=== PATIENT | female | born 1955 | race Caucasian/White ===

== ENCOUNTER 2018-03-11 15:34 | Outpatient (CLI) | payer BC | END 2018-03-11 15:35 | disposition home or self-care (01) | LOC: BICMAMMO 15:34 | PROVIDERS: ATTEND Obstetrics & Gynecology | DX: Z12.31 Encounter for screening mammogram for malignant neoplasm of breast (principal) | CPT/HCPCS: 77063; 77067 ==

== ENCOUNTER 2018-09-22 07:33 | Outpatient (CLI) | payer BC | END 2018-09-22 07:34 | disposition home or self-care (01) | LOC: CP 07:33 | PROVIDERS: ATTEND Family Medicine | DX: R06.89 Other abnormalities of breathing (principal) | CPT/HCPCS: 94060; 94727; 94729 ==

== ENCOUNTER 2019-03-21 08:37 | Outpatient (CLI) | payer BC ==
--- NOTE | 2019-03-21 09:07 | MMO ---
Bilateral MAMMO Bilat Screen [facility]. CLINICAL HISTORY: Patient is 63 years old and is seen for screening. The patient has no family history of breast cancer. The patient has no personal history of cancer. VIEWS: The views performed were: bilateral mediolateral oblique with tomosynthesis; bilateral craniocaudal with tomosynthesis; bilateral mediolateral oblique; and left craniocaudal. FILMS COMPARED: The present examination has been compared to prior imaging studies performed at [facility] on 02/08/2015, 03/04/2016, 03/05/2017 and 03/11/2018. MAMMOGRAM FINDINGS: There are scattered fibroglandular densities. There are no suspicious masses, suspicious calcifications, or new areas of architectural distortion. IMPRESSION: THERE IS NO MAMMOGRAPHIC EVIDENCE OF MALIGNANCY. A ROUTINE FOLLOW-UP MAMMOGRAM IN 1 YEAR IS RECOMMENDED. THE RESULTS OF THIS EXAM WERE SENT TO THE PATIENT. ACR BI-RADS Category 1 - Negative MAMMOGRAPHY NOTE: 1. A negative mammogram report should not delay a biopsy if a dominant of clinically suspicious mass is present. 2. Approximately 10% to 15% of breast cancers are not detected by mammography. 3. Adenosis and dense breasts may obscure an underlying neoplasm.
== END 2019-03-21 08:38 | disposition home or self-care (01) ==
LOC: BICMAMMO 08:37
PROVIDERS: ATTEND Obstetrics & Gynecology
DX: Z12.31 Encounter for screening mammogram for malignant neoplasm of breast (principal)
CPT/HCPCS: 77063; 77067

== ENCOUNTER 2019-05-17 16:02 | Outpatient (CLI) | payer BC ==
--- NOTE | 2019-05-17 16:41 | RAD ---
RIGHT KNEE RADIOGRAPHS FOUR VIEWS: 05/17/19 PROVIDED CLINICAL HISTORY: Right knee pain. FINDINGS: No evidence for fracture or other acute osseous abnormality. Small osteophytes are seen about the kne e. Alignment appears anatomic. Joint spaces appear preserved. No significant knee joint capsular dist ention is evident. IMPRESSION: Mild right knee degenerative change. POS: TPC
--- NOTE | 2019-05-17 16:43 | RAD ---
LEFT KNEE RADIOGRAPHS FOUR VIEWS: 05/17/19 PROVIDED CLINICAL HISTORY: Left knee pain. FINDINGS: There is no evidence for fracture or other acute osseous abnormality. Alignment appears anatomic. Sarah nt spaces appear preserved. Small osteophytes are seen about the knee. No significant knee joint caps ular distention apparent. IMPRESSION: Mild left knee degenerative change. POS: TPC
== END 2019-05-17 16:03 | disposition home or self-care (01) ==
LOC: BICRAD 16:02
PROVIDERS: ATTEND Family Medicine
DX: M25.561 Pain in right knee (principal); M25.562 Pain in left knee; M17.0 Bilateral primary osteoarthritis of knee

== ENCOUNTER 2019-07-18 09:48 | Outpatient (CLI) | payer BC ==
--- NOTE | 2019-07-18 10:20 | BD ---
EXAM: DEXA bone density examination HISTORY: 63-year-old postmenopausal female for screening COMPARISON: None FINDINGS: L1--bone mineral density 1.180 g/sq cm; T score 1.7 L2--bone mineral density 1.014 g/sq cm; T score -0.1 L3--bone mineral density 1.087 g/sq cm; T score 0.0 L4--bone mineral density 0.888 g/sq cm; T score -1.6 Total L1-L4--bone mineral density 1.036 g/sq cm; T score -0.1 Left femoral neck--bone mineral density0.681; T score -1.5 Total proximal left femur--bone mineral density 0.926; T score -0.1 IMPRESSION: Osteopenia This patient has a 10 year WHO fracture risk of a major osteoporotic fracture of 7.4% and of a hip fracture of 0.7%.
== END 2019-07-18 09:49 | disposition home or self-care (01) ==
LOC: BICMAMMO 09:48
PROVIDERS: ATTEND Obstetrics & Gynecology
DX: Z13.820 Encounter for screening for osteoporosis (principal); M81.0 Age-related osteoporosis without current pathological fracture; M85.80 Other specified disorders of bone density and structure, unspecified site; Z79.890 Hormone replacement therapy
CPT/HCPCS: 77080

== ENCOUNTER 2020-04-23 10:21 | Outpatient (CLI) | payer BC ==
--- NOTE | 2020-04-23 10:59 | MMO ---
Bilateral MAMMO Bilat Screen [facility]. CLINICAL HISTORY: Patient is 64 years old and is seen for screening. The patient has no family history of breast cancer. The patient has no personal history of cancer. VIEWS: The views performed were: bilateral craniocaudal with tomosynthesis and bilateral mediolateral oblique with tomosynthesis. FILMS COMPARED: The present examination has been compared to prior imaging studies performed at [facility] on 03/04/2016, 03/05/2017, 03/11/2018 and 03/21/2019. This study has been interpreted with the assistance of computer-aided detection. MAMMOGRAM FINDINGS: There are scattered fibroglandular densities. There are no suspicious masses, suspicious calcifications, or new areas of architectural distortion. IMPRESSION: THERE IS NO MAMMOGRAPHIC EVIDENCE OF MALIGNANCY. A ROUTINE FOLLOW-UP MAMMOGRAM IN 1 YEAR IS RECOMMENDED. THE RESULTS OF THIS EXAM WERE SENT TO THE PATIENT. ACR BI-RADS Category 1 - Negative MAMMOGRAPHY NOTE: 1. A negative mammogram report should not delay a biopsy if a dominant of clinically suspicious mass is present. 2. Approximately 10% to 15% of breast cancers are not detected by mammography. 3. Adenosis and dense breasts may obscure an underlying neoplasm. Reported by: TIN GAY MD Electonically Signed: [id number]
== END 2020-04-23 10:22 | disposition home or self-care (01) ==
LOC: BICMAMMO 10:21
PROVIDERS: ATTEND Obstetrics & Gynecology
DX: Z12.31 Encounter for screening mammogram for malignant neoplasm of breast (principal)
CPT/HCPCS: 77063; 77067

== ENCOUNTER 2021-05-21 07:50 | Outpatient (CLI) | payer MEDICARE, BC | END 2021-05-21 07:51 | disposition home or self-care (01) | LOC: BICMAMMO 07:50 | PROVIDERS: ATTEND Obstetrics & Gynecology | DX: Z12.31 Encounter for screening mammogram for malignant neoplasm of breast (principal) | CPT/HCPCS: 77063; 77067 ==

== ENCOUNTER 2021-08-25 16:20 | Outpatient (CLI) | payer MEDICARE, BC | END 2021-08-25 16:21 | disposition home or self-care (01) | LOC: BICRAD 16:20 | PROVIDERS: ATTEND Physician Assistant | DX: R05.9 Cough, unspecified (principal) | CPT/HCPCS: 71046 ==

== ENCOUNTER 2022-06-04 09:55 | Outpatient (CLI) | payer MEDICARE, BC | END 2022-06-04 09:56 | disposition home or self-care (01) | LOC: BICMAMMO 09:55 | PROVIDERS: ATTEND Obstetrics & Gynecology | DX: Z12.31 Encounter for screening mammogram for malignant neoplasm of breast (principal); M81.0 Age-related osteoporosis without current pathological fracture; N64.89 Other specified disorders of breast; M85.851 Other specified disorders of bone density and structure, right thigh; M85.852 Other specified disorders of bone density and structure, left thigh | CPT/HCPCS: 77063; 77067; 77080 ==

== ENCOUNTER 2022-06-17 13:25 | Outpatient (CLI) | payer MEDICARE, BC | END 2022-06-17 13:26 | disposition home or self-care (01) | LOC: BICMAMMO 13:25 | PROVIDERS: ATTEND Obstetrics & Gynecology | DX: N64.89 Other specified disorders of breast (principal) | CPT/HCPCS: 77065; G0279 ==

== ENCOUNTER 2023-01-04 04:18 | Observation (INO) | payer MEDICARE, BC ==
[2023-01-04] MEDS ORDERED: Nitroglycerin 2% Ointment 1 INCH/1 GM Packet ONE (04:39)
[2023-01-04 05:07] LABS: #Basophils 0.1 thou/uL (0.0-0.2); #Eosinphils 0.2 thou/uL (0.0-0.7); #Lymphocytes 3.4 thou/uL (1.20-3.40); #Monocytes 0.9 thou/uL (0.11-0.59); #Neutrophils 5.9 thou/uL (1.40-6.50); %Basophils 0.5 % (0.0-1.0); %Eosinophils 1.9 % (0.0-10.0); %Lymphocytes 32.4 % (21.0-51.0); %Monocytes 8.6 % (0.0-10.0); %Neutrophils 56.6 % (42.0-75.0); Hemoglobin 13.2 g/dL (12.0-16.0); Mean Corpuscular HGB CONC 31.6 g/dL (32.0-36.0); Mean Corpuscular Hemoglobin 27.6 pg (27.0-31.0); Mean Corpuscular Volume 87.4 fl (78.0-98.0); Mean Platelet Volume 8.5 fL (7.4-10.4); Platelet Count 244 10x3/uL (130-400); RBC Distribution Width 12.9 % (11.5-14.5); Red Blood Cell (RBC) Count 4.78 mill/uL (4.20-5.40); White Blood Cell (WBC) Count 10.5 10x3/uL (4.8-10.8)
[2023-01-04 05:27] LABS: ALT (SGPT) 21 U/L (8-55); AST (SGOT) 18 U/L (5-34); Albumin 3.7 g/dL (3.4-4.8); Alkaline Phosphatase 89 U/L (40-110); Anion Gap 11 mmol/L (10-20); BUN (Urea Nitrogen) 22 mg/dL (9.8-20.1); Bilirubin, Total 0.2 mg/dL (0.2-1.2); Calc. Creatinine Clearance 0 mL/min (70-130); Calcium 9.3 mg/dL (7.8-10.44); Carbon Dioxide 26 mmol/L (23-31); Chloride 106 mmol/L (98-107); Estimated GFR 73; Glucose 95 mg/dL (80-115); Lipase 42 U/L (8-78); Potassium 4.2 mmol/L (3.5-5.1); Protein, Total 6.7 g/dL (5.8-8.1); Sodium 139 mmol/L (136-145)
[2023-01-04] MEDS ORDERED: Nitroglycerin 0.4 MG TAB (25 Tab Bottle) SL PRN (07:46)
[2023-01-04] MEDS ORDERED: Acetaminophen 325 MG TAB PO PRN (07:46)
[2023-01-04] MEDS ORDERED: Aspirin Chewable 81 MG TAB PO SCH (08:30)
[2023-01-04] MEDS ORDERED: Levothyroxine Sodium 125 MCG TAB PO SCH (08:30)
[2023-01-04 08:39] LABS: Troponin I 0.027 ng/mL (< 0.028)
[2023-01-04] MEDS ORDERED: Aspirin Chewable 81 MG TAB ONE (10:13)
[2023-01-04 11:52] LABS: Troponin I 0.012 ng/mL (< 0.028)
[2023-01-04 13:40] VITALS: BMI 45.1
[2023-01-04] MEDS: Lisinopril 20 MG TAB PO SCH (20:15)
[2023-01-05 05:08] LABS: Anion Gap 9 mmol/L (10-20); BUN (Urea Nitrogen) 17 mg/dL (9.8-20.1); Calc. Creatinine Clearance 139 mL/min (70-130); Calcium 8.8 mg/dL (7.8-10.44); Carbon Dioxide 28 mmol/L (23-31); Cardiac Risk 3.6 (Less than 4.5); Chloride 101 mmol/L (98-107); Cholesterol 164 mg/dl (< 200 Desired); Estimated GFR 82; Glucose 97 mg/dL (80-115); HDL Cholesterol 46 mg/dL (>60 Neg Risk); LDL Cholesterol, Calculated 79 mg/dL; Sodium 134 mmol/L (136-145); Triglycerides 197 mg/dL (Less than 150)
[2023-01-05] MEDS: Liothyronine Sodium 5 MCG TAB PO SCH (05:29)
[2023-01-05] MEDS: Levothyroxine Sodium 125 MCG TAB PO SCH (05:29)
[2023-01-05] MEDS: Aspirin Chewable 81 MG TAB PO SCH (08:46)
[2023-01-05] MEDS ORDERED: Regadenoson 0.4 MG/5 ML SYRINGE ONE (08:56)
[2023-01-05] MEDS: Lisinopril 20 MG TAB PO SCH (20:23)
[2023-01-06] MEDS: Liothyronine Sodium 5 MCG TAB PO SCH (05:43)
[2023-01-06] MEDS: Levothyroxine Sodium 125 MCG TAB PO SCH (05:43)
[2023-01-06] MEDS: Aspirin Chewable 81 MG TAB PO SCH (08:29)
[2023-01-06 11:46] VITALS: BP 134/62; TEMP 97.3
== END 2023-01-06 13:30 | disposition home or self-care (01) ==
LOC: ERS 04:18 → ERHOLD 06:03 → 2NO 06:26
PROVIDERS: ADMIT Internal Medicine; ATTEND Internal Medicine
DX: R07.2 Precordial pain (principal); I10 Essential (primary) hypertension; E03.9 Hypothyroidism, unspecified; E88.81 Metabolic syndrome and other insulin resistance; E66.01 Morbid (severe) obesity due to excess calories; Z68.42 Body mass index [BMI] 45.0-49.9, adult; Z79.84 Long term (current) use of oral hypoglycemic drugs; Z79.890 Hormone replacement therapy; Z79.899 Other long term (current) drug therapy
CPT/HCPCS: 71045; 78452; 80048; 80061; 83690; 83880; 84484 ×2; 93005; 93017; 99285; A9500; G0378 ×4; 36415; 80053; 84443; 85025; J2785

== ENCOUNTER 2023-04-29 14:43 | Outpatient (CLI) | payer MEDICARE, BC | END 2023-04-29 14:44 | disposition home or self-care (01) | LOC: RAD 14:43 | PROVIDERS: ATTEND Family Medicine | DX: R05.3 Chronic cough (principal) | CPT/HCPCS: 71046 ==

== ENCOUNTER 2023-08-24 08:49 | Outpatient (CLI) | payer MEDICARE, BC | END 2023-08-24 08:50 | disposition home or self-care (01) | LOC: BICMAMMO 08:49 | PROVIDERS: ATTEND Obstetrics & Gynecology | DX: Z12.31 Encounter for screening mammogram for malignant neoplasm of breast (principal) | CPT/HCPCS: 77063; 77067 ==

== ENCOUNTER 2024-10-10 10:52 | Outpatient (CLI) | payer MEDICARE, BC | END 2024-10-10 10:53 | disposition home or self-care (01) | LOC: BICMAMMO 10:52 | PROVIDERS: ATTEND Family Medicine | DX: Z12.31 Encounter for screening mammogram for malignant neoplasm of breast (principal) | CPT/HCPCS: 77063; 77067 ==